=== PATIENT | female | born 1965 | race Two or more races ===

== ENCOUNTER 2016-10-22 18:55 | Emergency (ER) | payer MEDICAID ==
--- NOTE | 2016-10-22 19:05 | EDPHY ---
H & P HPI/ROS: HPI CHIEF COMPLAINT: Seizure from [facility] HISTORY OF PRESENT ILLNESS: This patient very pleasant 51-year-old female she lives at [facility] she has significant past medical history for epilepsy and at times is med noncompliant, anorexia, thyroid disease generalized weakness , she presents to the emergency room by EMS after she had a witnessed seizure generalized tonic-clonic. She does have a recent vagal nerve stimulator placed however it is not functioning yet. Upon arrival here in the emergency room she is still postictal. It is reported to me that she had possibly 15 minutes of seizure activity witnessed by [facility]. Here in the emergency room she is sitting here laughing and smiling. She is postictal. Patient is post be taking Depakote. Past Medical History: Epilepsy, medication noncompliant, thyroid disease, anorexia personality and behavior disorder, generalized muscle weakness Past Surgical History: recent vagal nerve stimulator Social History: Denies use of drugs alcohol tobacco products, lives [facility] Family History: Noncontributory ROS REVIEW OF SYSTEMS: A comprehensive 10 point review of systems is otherwise negative aside from elements mentioned in the history of present illness. Exam Constitutional smiling, laughing, postictal, confused triage nursing summary reviewed, vital signs reviewed, awake/alert. Eyes normal conjunctivae and sclera, EOMI, PERRLA. HENT normal inspection, atraumatic, moist mucus membranes, no epistaxis, neck supple/ no meningismus, no raccoon eyes. Respiratory clear to auscultation bilaterally, normal breath sounds, no respiratory distress, no wheezing. Cardiovascular rate normal, regular rhythm, no murmur, no edema, distal pulses normal. Gastrointestinal soft, non-tender, no rebound, no guarding, normal bowel sounds, no distension, no pulsatile mass. Genitourinary no CVA tenderness. Musculoskeletal no midline vertebral tenderness, full range of motion, no calf swelling, no tenderness of extremities, no meningismus, good pulses, neurovascularly intact. Skin pink, warm, & dry, no rash, skin atraumatic. Neurologic awake, alert and oriented x 1, AAOx1, moves all 4 extremities equally, motor intact, sensory intact, CN II-XII intact, normal cerebellar, normal vision, normal speech. Psychiatric normal mood/affect. Heme/Lymph/Immune no lymphadenopathy. Differential Diagnosis: Includes but is not limited to in a particular order, breakthrough seizure, epilepsy, medication noncompliance, electrolyte disturbance, dehydration Medical Decision Making: plan for this patient will place an IV check basic blood work including electrolytes, should be placed on full monitoring analyst will monitor closely for further seizure activity. Check Depakote level. Re-evaluation: 2038: Re-examination at this time: Patient is resting comfortably. She is at neurological baseline. Depakote level is low. Be given a 1000 mg extended release. She has not any further seizure activity here in emergency room she is monitored here for multiple hours. Vital signs are stable. Blood work reviewed shows no evidence of a low bicarb. Electrolytes are appropriate. Depakote level low. Patient is comfortable going home. It is noted that we did talk to Jessica Donald who tells me that they attempted to give her her Depakote dose this evening however she spit it out. Source: Patient - Medical/Surgical History Hx Asthma: No Hx Chronic Respiratory Disease: No Hx Diabetes: No Hx Cardiac Disease: No Hx Renal Disease: No Hx Cirrhosis: No Hx Alcoholism: No Hx HIV/AIDS: No Hx Splenectomy or Spleen Trauma: No Other PMH: SEIZURE, ANOREXIA, HYPOTHYROID, WEAKNESS - Social History Smoking Status: Former smoker Constitutional: Initial Vital Signs Temperature (C) 36.8 C 10/22/16 19:05 Heart Rate 77 10/22/16 19:05 Respiratory Rate 18 10/22/16 19:05 Blood Pressure 128/68 H 10/22/16 19:05 O2 Sat (%) 92 10/22/16 19:05 O2 Delivery Mode Room Air Allergies/Adverse Reactions: codeine [Codeine] Allergy (Intermediate, Verified 06/09/09 20:18) BREAK OUT LIKE A LOBSTER,RASH,PUFFY Home Medications: Medication Instructions Recorded ACETAZOLAMIDE 06/09/09 ALENDRONATE SODIUM 06/09/09 Levothyroxine 06/09/09 ZONISAMIDE 06/09/09 VIMPAT 05/30/10 Medical Decision Making - Data Points Laboratory Results: Laboratory Results 10/22/16 19:02 10/22/16 19:02 10/22/16 10/22/16 19:02 19:02 WBC 8.21 10^3/uL 10^3/uL (3.80-9.50) RBC 3.78 10^6/uL L 10^6/uL (4.18-5.33) Hgb 12.4 g/dL L g/dL (12.6-16.3) Hct 39.2 % % (38.0-47.0) MCV 103.7 fL H fL (81.5-99.8) MCH 32.8 pg pg (27.9-34.1) MCHC 31.6 g/dL L g/dL (32.4-36.7) RDW 15.8 % H % (11.5-15.2) Plt Count 240 10^3/uL 10^3/uL (150-400) MPV 9.8 fL fL (8.7-11.7) Neut % (Auto) 51.1 % % (39.3-74.2) Lymph % (Auto) 35.8 % % (15.0-45.0) Mobile % (Auto) 11.4 % % (4.5-13.0) Eos % (Auto) 1.1 % % (0.6-7.6) Baso % (Auto) 0.4 % % (0.3-1.7) Nucleat RBC Rel Count 0.0 % % (0.0-0.2) Absolute Neuts (auto) 4.19 10^3/uL 10^3/uL (1.70-6.50) Absolute Lymphs (auto) 2.94 10^3/uL 10^3/uL (1.00-3.00) Absolute Monos (auto) 0.94 10^3/uL H 10^3/uL (0.30-0.80) Absolute Eos (auto) 0.09 10^3/uL 10^3/uL (0.03-0.40) Absolute Basos (auto) 0.03 10^3/uL 10^3/uL (0.02-0.10) Absolute Nucleated RBC 0.00 10^3/uL 10^3/uL (0-0.01) Immature Gran % 0.2 % % (0.0-1.1) Immature Gran # 0.02 10^3/uL 10^3/uL (0.00-0.10) Sodium 140 mEq/L mEq/L (134-144) Potassium 4.0 mEq/L mEq/L (3.5-5.2) Chloride 107 mEq/L mEq/L (97-110) Carbon Dioxide 26 mEq/l mEq/l (22-31) Anion Gap 7 mEq/L L mEq/L (8-16) BUN 21 mg/dL mg/dL (7-23) Creatinine 0.5 mg/dL L mg/dL (0.6-1.0) Estimated GFR > 60 Glucose 83 mg/dL mg/dL (70-100) Calcium 9.8 mg/dL mg/dL (8.5-10.4) Valproic Acid 34.3 mcg/mL L mcg/mL (50.0-150.0) Medications Given: Discontinued Medications Sodium Chloride (Ns) 1,000 mls @ 0 mls/hr IV ONCE ONE PRN Reason: Wide Open Stop: 10/22/16 19:19 Last Admin: 10/22/16 19:34 Dose: 1,000 mls Departure - Departure Disposition: Home, Routine, Self-Care Clinical Impression: Seizure Condition: Good Instructions: Epilepsy (ED) Referrals: Patient,NotPresent [Unknown] - As per Instructions
[2016-10-22 19:08] VITALS: TEMP 98.2
[2016-10-22] MEDS ORDERED: NS 1,000 ML IV ONE (19:18)
[2016-10-22 19:24] LABS: % IMMATURE GRANULYOCYTES 0.2 % (0.0-1.1); ABSOLUTE IMMATURE GRANULOCYTES 0.02 10^3/uL (0.00-0.10); ADD DIFF? NO; ADD MORPH? NO; ADD SCAN? NO; ATYPICAL LYMPHOCYTE FLAG 10 (0-99); FRAGMENT RBC FLAG 0 (0-99); HEMATOCRIT 39.2 % (38.0-47.0); HEMOGLOBIN 12.4 g/dL (12.6-16.3); LEFT SHIFT FLG 0 (0-99); LIPEMIA HEMOLYSIS FLAG 80 (0-99); MEAN CELL HEMOGLOBIN 32.8 pg (27.9-34.1); MEAN CELL HEMOGLOBIN CONCENTR. 31.6 g/dL (32.4-36.7); MEAN CELL VOLUME 103.7 fL (81.5-99.8); MEAN PLATELET VOLUME 9.8 fL (8.7-11.7); PLATELET CLUMPS FLAG 0 (0-99); PLATELET COUNT 240 10^3/uL (150-400); RED BLOOD CELL COUNT 3.78 10^6/uL (4.18-5.33); RED CELL DISTRIBUTION WIDTH 15.8 % (11.5-15.2)
[2016-10-22 19:29] LABS: ANION GAP 7 mEq/L (8-16); CALCIUM 9.8 mg/dL (8.5-10.4); CARBON DIOXIDE 26 mEq/l (22-31); CHLORIDE 107 mEq/L (97-110); CREATININE 0.5 mg/dL (0.6-1.0); GLOMERULAR FILTRATION RATE > 60; GLUCOSE 83 mg/dL (70-100); SODIUM 140 mEq/L (134-144)
[2016-10-22] MEDS ORDERED: DIVALPROEX ER 500 MG TAB PO SCH (21:00)
[2016-10-22 21:19] VITALS: BP 121/75; PULSE 68; RESP 19; O2SAT 94
== END 2016-10-22 21:10 | disposition home or self-care (01) ==
LOC: EDUNIT#
DX: G40.909 Epilepsy, unspecified, not intractable, without status epilepticus (principal); Z87.891 Personal history of nicotine dependence

== ENCOUNTER 2016-10-27 18:19 | Emergency (ER) | payer MEDICAID ==
--- NOTE | 2016-10-27 18:19 | EDPHY ---
H & P Time Seen by Provider: 10/27/16 18:31 Constitutional: Initial Vital Signs Temperature (C) 36.6 C 10/27/16 18:24 Heart Rate 82 10/27/16 18:24 Respiratory Rate 16 10/27/16 18:24 Blood Pressure 126/113 H 10/27/16 18:24 O2 Sat (%) 95 10/27/16 18:24 O2 Delivery Mode Room Air Allergies/Adverse Reactions: codeine [Codeine] Allergy (Intermediate, Verified 06/09/09 20:18) BREAK OUT LIKE A LOBSTER,RASH,PUFFY Home Medications: Medication Instructions Recorded ACETAZOLAMIDE 06/09/09 ALENDRONATE SODIUM 06/09/09 Levothyroxine 06/09/09 ZONISAMIDE 06/09/09 VIMPAT 05/30/10 Medical Decision Making ED Course/Re-evaluation: CHIEF COMPLAINT: Head injury HISTORY OF PRESENT ILLNESS: This patient is a 51 year old female who presents to the Emergency Department by EMS from [facility] with a head injury obtained when she fell earlier this evening. She has a history of epilepsy and reports that she had a seizure causing her to fall, though this has not been confirmed. She reports headache secondary to the trauma. She denies sensation changes, vision changes, or other neurological deficits. No additional injuries. REVIEW OF SYSTEMS: A 10 point review of systems was performed and is negative with the exception of the elements mentioned in the history of present illness. PHYSICAL EXAM: HR 82, BP 126/113, O2 Sat 95%, RR 16. Temp noted General Appearance: Alert, well hydrated, appropriate, and non-toxic appearing. Head: Left parietal scalp hematoma with bleeding superficial abrasion. Eyes: Pupils equal, round, reactive to light and accommodation, EOMI, no trauma , no injection. Ears: Clear bilaterally, no perforation, normal landmarks Nose: Atraumatic, no rhinorrhea, clear. Throat: There is no erythema or exudates, no lesions, normal tonsils, mucus membranes moist. Neck: Supple, 2+ carotid upstroke, nontender, no lymphadenopathy. Respiratory: No retractions, no distress, no wheezes, and no accessory muscle use. Lungs are clear to auscultation bilaterally. Cardiovascular: Regular rate and rhythm, no murmurs, rubs, or gallops. Bilateral carotid, radial, dorsalis pedis, and posterior tibial pulses intact. Good capillary refill all extremities. Gastrointestinal: Abdomen is soft, nontender, non-distended, no masses, no rebound, no guarding, no peritoneal signs. Musculoskeletal: Normal active ROM of all extremities, atraumatic. Neurological: Alert, appropriate, and interactive. The patient has normal DTRs and non-focal cranial nerves, motor, sensory, and cerebellar exam. Skin: No rashes, good turgor, no nodules on palpation. Past medical history: Epilepsy, anorexia, thyroid disease. Past surgical history: Recent vagal nerve stimulator. Family history: Non-contributory. Social history: Lives at [facility]. DIAGNOSTICS/PROCEDURES/CRITICAL CARE TIME: Study: CTA of the head Indication: Fall, trauma Results: CT angiogram of the head was obtained. The results of the study are: 1. Old posttraumatic/postsurgical change to the posterior superior left frontal and superior left parietal regions with some associated dystrophic calcifications above the left lateral ventricle. There is some localized mild increased attenuation in this area which may be related to some calcification, although it would be difficult to entirely exclude some petechial hemorrhage (especially given an acute left posterior parietal scalp hematoma); if there are no prior studies currently available, short-term follow- up is suggested. 2. Mild cerebral and cerebellar cortical atrophy. 3. Old posttraumatic change to the nose. The study was read by the radiologist, Dr. Ramakrishna Rowan. I viewed the images myself on the PACS system. DIFFERENTIAL DIAGNOSIS: The differential diagnosis for the patient's head injury included but was not limited to concussion, skull fracture, intra- parenchymal contusion, subarachnoid, subdural and epidural hematoma. MEDICAL DECISION MAKING: This patient is a 51 year old female with extensive neurological history and history of intractable seizures living at [facility] who presents today with a bleeding hematoma to his left parietal scalp. She reports that she had a seizure, but given her mentation status, it is unclear if this is the case and has not been confirmed. She complains of head pain. Her exam is benign apart from the bleeding hematoma to her parietal scalp. Will proceed with treatment of pain, wound care, and CT of the head. Prior medical records reviewed by myself, including recent visit to the ED on 10/22/2016. 2 tab Percocet administered for pain. Imaging results reported to me by Dr. Rowan, radiology. Plan for consultation with neurosurgery. 1912: Consultation with Dr. Dwight Hogan who reviewed the images and suggests no evidence of acute trauma. Patient will be discharged back to [facility] in good condition with return precautions. - Data Points Medications Given: Discontinued Medications Oxycodone/Acetaminophen (Percocet 5/325) 2 tab PO EDNOW ONE Stop: 10/27/16 18:39 Last Admin: 10/27/16 19:17 Dose: 2 tab Departure - Departure Disposition: Home, Routine, Self-Care Clinical Impression: Left parietal scalp hematoma Qualifiers: Encounter type: initial encounter Qualified Code(s): S00.03XA - Contusion of scalp, initial encounter Condition: Good Instructions: Head Injury (ED) Additional Instructions: 1. Take Tylenol every 6 hours as needed for pain. 2. Keep your wound clean and dry. 3. Return to the Emergency Department if you experience severe headache, confusion, slurred speech, difficulty walking, or other serious concerns. Referrals: MERVAT PRIETO [Primary Care Provider] - As per Instructions Report Scribed for: Atul Molina Report Scribed by: Rama Schneider Date of Report: 10/27/16 Time of Report: 18:30
[2016-10-27 18:30] VITALS: RESP 16
[2016-10-27] MEDS ORDERED: OXYCODONE/APAP 5/325 TAB PO ONE (18:38)
[2016-10-27 20:11] VITALS: BP 110/71; PULSE 72; TEMP 97.9; O2SAT 95
== END 2016-10-27 20:11 | disposition home or self-care (01) ==
LOC: EDUNIT#
DX: S00.03XA Contusion of scalp, initial encounter (principal); W18.39XA Other fall on same level, initial encounter

== ENCOUNTER 2016-12-03 09:22 | Emergency (ER) | payer MEDICAID ==
--- NOTE | 2016-12-03 09:35 | EDPHY ---
H & P Stated Complaint: Fall Time Seen by Provider: 12/03/16 09:48 HPI/ROS: CHIEF COMPLAINT: Head injury HISTORY OF PRESENT ILLNESS: This is a 51-year-old female brought in by EMS from [facility]. EMS reports patient had a mechanical fall witnessed by [facility] staff. Patient has a history of a falls, history of epilepsy muscle weakness anorexia. When patient fell she tried to catch herself with her left arm hitting left side of head on tile floor. EMS reports [facility] states this is her baseline mentation. Patient complaining of left-sided headache. REVIEW OF SYSTEMS: Constitutional: No fever no chills Eyes: No vision changes ENT: No sore throat, bump on left side of head with laceration Respiratory: No shortness of breath Cardiac: No chest pain Gastrointestinal: No no abdominal pain Musculoskeletal: No back pain Skin: No rash Neurological: Complain of headache Source: Patient, Family, EMS, group home records Exam Limitations: Clinical condition (Baseline altered mental status), Physical impairment (Left lower extremity brace) - Medical/Surgical History Hx Asthma: No Hx Chronic Respiratory Disease: No Hx Diabetes: No Hx Cardiac Disease: No Hx Renal Disease: No Hx Cirrhosis: No Hx Alcoholism: No Hx HIV/AIDS: No Hx Splenectomy or Spleen Trauma: No Other PMH: SEIZURE, ANOREXIA, HYPOTHYROID, WEAKNESS - Social History Smoking Status: Former smoker - Physical Exam Exam: General Appearance: Awake, slow to answer questions no distress. Altered mentation baseline per nursing facility and family Eyes: Pupils equal and round no pallor or injection. ENT, Mouth: Mucous membranes moist. Contusion with 1.5 cm scalp laceration left parietal bleeding controlled Respiratory: There are no retractions, lungs are clear to auscultation. Cardiovascular: Regular rate and rhythm. Gastrointestinal: Abdomen is soft and nontender, no masses, bowel sounds normal. Skin: Warm and dry, no rashes. Musculoskeletal: Cervical vertebral spine tenderness on palpation. Neck is supple Extremities no lacerations or ecchymosis noted. Positive CMS intact. Brace noted to left lower extremity Psychiatric: Patient is oriented X 2, there is no agitation. Constitutional: Initial Vital Signs Temperature (C) 36.7 C 12/03/16 09:40 Heart Rate 68 12/03/16 09:40 Respiratory Rate 18 12/03/16 09:40 Blood Pressure 107/76 12/03/16 09:40 O2 Sat (%) 96 12/03/16 09:40 O2 Delivery Mode Room Air Allergies/Adverse Reactions: codeine [Codeine] Allergy (Intermediate, Verified 06/09/09 20:18) BREAK OUT LIKE A LOBSTER,RASH,PUFFY Home Medications: Medication Instructions Recorded ACETAZOLAMIDE 06/09/09 ALENDRONATE SODIUM 06/09/09 Levothyroxine 06/09/09 ZONISAMIDE 06/09/09 VIMPAT 05/30/10 Medical Decision Making - Diagnostics Imaging: Imaging Impressions Cervical Spine CT 12/03/16 09:35 Impression: Negative for acute post traumatic sequela. Postoperative changes as detailed above are stable. CT Cervical Spine Without Contrast History: Neck pain following trauma. Technique: Multislice helical CT through the cervical spine without contrast from the skull base to T1. Soft tissue and bone evaluation is performed. Sagittal and coronal reconstructions are obtained and reviewed. Dose reduction techniques were utilized. Findings: Cervical alignment is anatomic. No acute fracture or dislocation is identified. There is minimal anterior wedging of the C5 vertebral body and there are associated bony hypertrophic changes suggesting chronicity possibly related to remote trauma. The relationship between skull base and C1 is normal. The C1-C2 articulation is normal. The odontoid process is normal. The cervical thoracic junction is normal. Soft tissue window evaluation does not show evidence of epidural or prevertebral hematoma. Mild multilevel spondylosis is noted. Surgical changes are noted in the soft tissues of the left neck. Impression: 1. Negative for fracture. 2. See above report for additional findings. Results called and discussed with Rosie Simon NP on 12/03/2016 at 10:20hours. Head CT 12/03/16 09:35 Impression: Negative for acute post traumatic sequela. Postoperative changes as detailed above are stable. CT Cervical Spine Without Contrast History: Neck pain following trauma. Technique: Multislice helical CT through the cervical spine without contrast from the skull base to T1. Soft tissue and bone evaluation is performed. Sagittal and coronal reconstructions are obtained and reviewed. Dose reduction techniques were utilized. Findings: Cervical alignment is anatomic. No acute fracture or dislocation is identified. There is minimal anterior wedging of the C5 vertebral body and there are associated bony hypertrophic changes suggesting chronicity possibly related to remote trauma. The relationship between skull base and C1 is normal. The C1-C2 articulation is normal. The odontoid process is normal. The cervical thoracic junction is normal. Soft tissue window evaluation does not show evidence of epidural or prevertebral hematoma. Mild multilevel spondylosis is noted. Surgical changes are noted in the soft tissues of the left neck. Impression: 1. Negative for fracture. 2. See above report for additional findings. Results called and discussed with Rosie Simon NP on 12/03/2016 at 10:20hours. Procedures: Procedure: Laceration repair. Verbal consent was obtained from the patient and family. 1.5cm laceration on the left parietal. The wound was irrigated. There were no deep structures involved. The wound was repaired 3 lisbet. The procedure was performed by myself. A dressing was applied by our EMT. Patient tolerated procedure ED Course/Re-evaluation: Discussed plan of care with family: CT head and cervical spine negative for any acute findings 11:00: Wound irrigated, 3 lisbet placed 11:10: discharge back to nursing facility---> stable, discussed discharge instructions with family Differential Diagnosis: Differential diagnosis considered but not limited to SAH, no skull fracture and cervical fracture Departure - Departure Disposition: Home, Routine, Self-Care Clinical Impression: Scalp laceration Qualifiers: Encounter type: initial encounter Qualified Code(s): S01.01XA - Laceration without foreign body of scalp, initial encounter Condition: Good Instructions: Laceration (ED) Additional Instructions: 1. Ice pack 15 minutes to contusion every hour for the next 6-12 hours 2. #3 lisbet were placed to laceration, monitor for any signs of infection 3. CT of head and neck were negative for any acute findings 4. Patient should be using walker to assist considered she is high fall risk Referrals: Patient,NotPresent [Unknown] - As per Instructions [facility],. [Clinic] - As per Instructions
[2016-12-03 09:43] VITALS: RESP 18
[2016-12-03 11:18] VITALS: BP 110/74; PULSE 74; TEMP 98.6; O2SAT 100
== END 2016-12-03 11:43 | disposition home or self-care (01) ==
LOC: EDUNIT#
PROC: 0HQ0XZZ Repair Scalp Skin, External Approach (ICD-10-PCS; principal; 2016-12-03)
DX: S01.01XA Laceration without foreign body of scalp, initial encounter (principal); Z87.891 Personal history of nicotine dependence; W18.09XA Striking against other object with subsequent fall, initial encounter

== ENCOUNTER 2016-12-08 08:49 | Emergency (ER) | payer MEDICAID ==
[2016-12-08 09:01] VITALS: RESP 16
--- NOTE | 2016-12-08 09:01 | EDPHY ---
H & P Time Seen by Provider: 12/08/16 08:57 HPI/ROS: CHIEF COMPLAINT: Fall HISTORY OF PRESENT ILLNESS: Patient is a 51-year-old female who is in a [facility] for history of severe epilepsy. She fell out of her chair this morning at breakfast. We are unsure as to whether not she had a seizure. group home staff felt that she was less alert than at baseline. She was seen here last week after similar incident and they had negative head CT. She did have a laceration to the left parieto-occipital region repaired with lisbet. She has an old nasal bone fracture as well. EMS brought her in as a limited trauma. The patient does answer basic questions she does complain of mild neck pain. We are not sure she hit her head today. REVIEW OF SYSTEMS: Unable to obtain secondary to condition EXAM: GENERAL: Thin, responsive HEAD: Atraumatic, normocephalic. EYES: Pupils equal round and reactive to light, extraocular movements intact, sclera anicteric, conjunctiva are normal. ENT: Deformity and bruising to the nasal bridge and near eyes, appears to be old. Deformed nose. TMs normal, nares patent, oropharynx clear without exudates. Moist mucous membranes. NECK: Cervical collar in place, mild tenderness to palpation midline. LUNGS: Breath sounds clear to auscultation bilaterally and equal. No wheezes rales or rhonchi. HEART: Regular rate and rhythm without murmurs, rubs or gallops. ABDOMEN: Soft, nontender, normoactive bowel sounds. No guarding, no rebound. No masses appreciated. BACK: No CVA tenderness, no spinal tenderness, step-offs or deformities EXTREMITIES: Normal range of motion, no pitting or edema. No clubbing or cyanosis. NEUROLOGICAL: Cranial nerves II through XII grossly intact. Normal speech, normal gait. 5/5 strength, normal movement in all extremities, normal sensation PSYCH: Unable to assess SKIN: Warm, dry, normal turgor, no visible rashes or lesions. Source: Patient, EMS Exam Limitations: No limitations - Medical/Surgical History Hx Asthma: No Hx Chronic Respiratory Disease: No Hx Diabetes: No Hx Cardiac Disease: No Hx Renal Disease: No Hx Cirrhosis: No Hx Alcoholism: No Hx HIV/AIDS: No Hx Splenectomy or Spleen Trauma: No Other PMH: SEIZURE, ANOREXIA, HYPOTHYROID, WEAKNESS - Family History Significant Family History: No pertinent family hx - Social History Smoking Status: Former smoker Alcohol Use: Sober Drug Use: None Constitutional: Initial Vital Signs Temperature (C) 36.5 C 12/08/16 08:49 Heart Rate 95 12/08/16 08:49 Respiratory Rate 16 12/08/16 08:49 Blood Pressure 103/73 12/08/16 08:49 O2 Sat (%) 96 12/08/16 08:49 O2 Delivery Mode Room Air Allergies/Adverse Reactions: codeine [Codeine] Allergy (Intermediate, Verified 06/09/09 20:18) BREAK OUT LIKE A LOBSTER,RASH,PUFFY Home Medications: Medication Instructions Recorded ACETAZOLAMIDE 06/09/09 ALENDRONATE SODIUM 06/09/09 Levothyroxine 06/09/09 ZONISAMIDE 06/09/09 VIMPAT 05/30/10 Medical Decision Making - Diagnostics Imaging: Discussed imaging studies w/ medical bill processor Radiologist ED Course/Re-evaluation: 10:00 a.m. the patient is feeling much better. She is at her baseline mental status. She is answering questions appropriately. I cleared her cervical collar. She denies having any pain but states that her throat is very dry. We will have her attempt to drink. She states that she thinks she had a seizure today and that is why she fell. She states this happens every day. She is able to tolerate p.o. fluids. Differential Diagnosis: Partial list of the Differential diagnosis considered include but were not limited to; seizure, mechanical fall, traumatic head injury, neck injury, electrolyte abnormality, dehydration, and although unlikely based on the history and physical exam, I also considered substance abuse, fracture, intracranial hemorrhage. I discussed these differential diagnoses and the plan with the patient as well as the usual and expected course. The patient understands that the diagnosis is provisional and that in medicine we are not always correct and that further workup is often warranted. Usual and customary warnings were given. All of the patient's questions were answered. The patient was instructed to return to the emergency department should the symptoms at all worsen or return, otherwise to followup with the physician as we discussed. - Data Points Laboratory Results: Laboratory Results 12/08/16 09:40 12/08/16 09:40 Departure - Departure Disposition: Home, Routine, Self-Care Clinical Impression: Seizure Epilepsy Qualifiers: Epilepsy type: other Intractability: not intractable Status epilepticus: without status epilepticus Qualified Code(s): G40.802 - Other epilepsy, not intractable, without status epilepticus Condition: Fair Instructions: Recurrent Seizures in Adults (ED) Referrals: Patient,NotPresent [Unknown] - As per Instructions Lupe Chavira MD [[facility] [place] Primary Care Provider] - As per Instructions Ochoa Morales MD [Medical Doctor] - As per Instructions
[2016-12-08 09:50] LABS: % IMMATURE GRANULYOCYTES 0.3 % (0.0-1.1); ABSOLUTE IMMATURE GRANULOCYTES 0.04 10^3/uL (0.00-0.10); ADD DIFF? NO; ADD MORPH? NO; ADD SCAN? NO; ATYPICAL LYMPHOCYTE FLAG 10 (0-99); FRAGMENT RBC FLAG 0 (0-99); HEMATOCRIT 39.7 % (38.0-47.0); HEMOGLOBIN 12.8 g/dL (12.6-16.3); LEFT SHIFT FLG 0 (0-99); LIPEMIA HEMOLYSIS FLAG 80 (0-99); MEAN CELL HEMOGLOBIN 31.5 pg (27.9-34.1); MEAN CELL HEMOGLOBIN CONCENTR. 32.2 g/dL (32.4-36.7); MEAN CELL VOLUME 97.8 fL (81.5-99.8); MEAN PLATELET VOLUME 10.7 fL (8.7-11.7); PLATELET CLUMPS FLAG 20 (0-99); PLATELET COUNT 172 10^3/uL (150-400); RED BLOOD CELL COUNT 4.06 10^6/uL (4.18-5.33); RED CELL DISTRIBUTION WIDTH 13.8 % (11.5-15.2)
[2016-12-08 10:35] LABS: ANION GAP 14 mEq/L (8-16); CALCIUM 9.4 mg/dL (8.5-10.4); CARBON DIOXIDE 21 mEq/l (22-31); CHLORIDE 112 mEq/L (97-110); CREATININE 0.5 mg/dL (0.6-1.0); GLOMERULAR FILTRATION RATE > 60; GLUCOSE 83 mg/dL (70-100); POTASSIUM 3.9 mEq/L (3.5-5.2); SODIUM 147 mEq/L (134-144)
[2016-12-08 11:35] VITALS: BP 95/70; PULSE 86; TEMP 98.2; O2SAT 95
== END 2016-12-08 11:30 | disposition home or self-care (01) ==
LOC: EDUNIT#
DX: G40.802 Other epilepsy, not intractable, without status epilepticus (principal); Z87.891 Personal history of nicotine dependence; W07.XXXA Fall from chair, initial encounter; Y92.129 Unspecified place in nursing home as the place of occurrence of the external cause
CPT/HCPCS: L0120

== ENCOUNTER 2017-03-25 21:19 | Emergency (ER) | payer MEDICAID ==
--- NOTE | 2017-03-25 21:35 | EDPHY ---
H & P Time Seen by Provider: 03/25/17 21:33 HPI/ROS: CHIEF COMPLAINT: Fall HISTORY OF PRESENT ILLNESS: The patient is a 51-year-old female with a history of epilepsy and cognitive disorder who was at the [facility] this evening when she had a mechanical fall. She fell into a dresser and then onto the ground hitting the back of her head on the ground. She is complaining of pain in her head and neck. She is not on any blood thinners. She did not have a seizure. Staff at the [facility] stated that she seemed slightly more confused than usual. She has not had any recent illness. No nausea vomiting. I saw her in November for the same complaint. REVIEW OF SYSTEMS: Constitutional: denies: chills, fever, recent illness, recent injury EENTM: denies: blurred vision, double vision, nose congestion Respiratory: denies: cough, shortness of breath Cardiac: denies: chest pain, irregular heart rate, lightheadedness, palpitations Gastrointestinal/Abdominal: denies: abdominal pain, diarrhea, nausea, vomiting, blood streaked stools Genitourinary: denies: dysuria, frequency, hematuria, pain Musculoskeletal: denies: joint pain, muscle pain Skin: denies: lesions, rash, jaundice, bruising Neurological: See HPI Hematologic/Lymphatic: denies: blood clots, easy bleeding, easy bruising Immunologic/allergic: denies: HIV/AIDS, transplant EXAM: GENERAL: Well-appearing, well-nourished and in no acute distress. HEAD: Atraumatic, normocephalic. EYES: Pupils equal round and reactive to light, extraocular movements intact, sclera anicteric, conjunctiva are normal. ENT: TMs normal, old nasal bone fracture significant deformity, oropharynx clear without exudates. Moist mucous membranes. NECK: Cervical collar in place, nontender LUNGS: Breath sounds clear to auscultation bilaterally and equal. No wheezes rales or rhonchi. HEART: Regular rate and rhythm without murmurs, rubs or gallops. ABDOMEN: Soft, nontender, normoactive bowel sounds. No guarding, no rebound. No masses appreciated. BACK: No CVA tenderness, no spinal tenderness, step-offs or deformities EXTREMITIES: Normal range of motion, no pitting or edema. No clubbing or cyanosis. NEUROLOGICAL: Cranial nerves II through XII grossly intact. Normal speech, normal gait. 5/5 strength, normal movement in all extremities, normal sensation PSYCH: Normal mood, normal affect. SKIN: Warm, dry, normal turgor, no visible rashes or lesions. Source: Patient, EMS, Old records Exam Limitations: Clinical condition - Medical/Surgical History Hx Asthma: No Hx Chronic Respiratory Disease: No Hx Diabetes: No Hx Cardiac Disease: No Hx Renal Disease: No Hx Cirrhosis: No Hx Alcoholism: No Hx HIV/AIDS: No Hx Splenectomy or Spleen Trauma: No Other PMH: SEIZURE, ANOREXIA, HYPOTHYROID, WEAKNESS, muscle atrophy - Family History Significant Family History: No pertinent family hx - Social History Smoking Status: Former smoker Alcohol Use: Sober Drug Use: None Constitutional: Initial Vital Signs Temperature (C) 36.5 C 03/25/17 21:20 Heart Rate 74 03/25/17 21:20 Respiratory Rate 16 03/25/17 21:20 Blood Pressure 137/72 H 03/25/17 21:20 O2 Sat (%) 93 03/25/17 21:20 O2 Delivery Mode Room Air Allergies/Adverse Reactions: codeine [Codeine] Allergy (Intermediate, Verified 03/26/17 00:53) BREAK OUT LIKE A LOBSTER,RASH,PUFFY Home Medications: Medication Instructions Recorded ACETAZOLAMIDE 06/09/09 ALENDRONATE SODIUM 06/09/09 Levothyroxine 06/09/09 ZONISAMIDE 06/09/09 VIMPAT 05/30/10 Medical Decision Making - Diagnostics Imaging: Discussed imaging studies w/ information systems security officer Radiologist ED Course/Re-evaluation: The patient has a nondisplaced fracture of the body of C4 that transverses the left vertebral foramen. She remains in a collar. I will consult Neurosurgery likely admit to Trauma. She continues to deny any other pain or acute injuries. 10:30 p.m. Discussed the case with Dr. Olvera from Neurosurgery. He does not recommend CT angiogram unless the patient has stroke-like symptoms. He does suggest MRI in the morning and she may be cleared from her cervical collar at that time if it is negative. I spoke with the patient who states that she feels normal. She does have mild neck pain. She is moving all extremities without difficulty. She denies thoracic or abdominal pain. Have paged trauma service to admit. 10:45 p.m. I discussed the case with Dr. West from General surgery. He suggests the patient be admitted to the Neurosurgery service since this is an isolated neck injury. 11:10 p.m. I discussed the case with Dr. Olvera from Neurosurgery. He states that if this is a isolated injury the patient does not need to be admitted. She can be discharged in a Arthur J collar and follow up in the clinic next week for flexion-extension imaging. Differential Diagnosis: Partial list of the Differential diagnosis considered include but were not limited to; cervical spine injury, head injury, intoxication and although unlikely based on the history and physical exam, I also considered electrolyte abnormality, thoracic injury, extremity injury. Departure - Departure Disposition: [facility] Inpatient Acute Clinical Impression: Cervical spine fracture Qualifiers: Encounter type: initial encounter Cervical vertebra fracture level: C4 Fracture type: open Fracture morphology: other fracture Fracture alignment: nondisplaced Qualified Code(s): S12.391B - Other nondisplaced fracture of fourth cervical vertebra, initial encounter for open fracture Condition: Fair Instructions: Cervical Fracture (ED), Arthur J Collar (ED) Additional Instructions: You have a nondisplaced fracture of C4. Keep the collar in place until you follow up with Neurosurgery next week. Referrals: Red Olvera MD [Medical Doctor] - 2-3 days without fail
[2017-03-26 00:21] VITALS: BP 100/68; PULSE 72; RESP 18; O2SAT 96
[2017-03-26 00:53] VITALS: TEMP 97.7
== END 2017-03-26 00:05 | disposition home or self-care (01) ==
DX: S12.391A Other nondisplaced fracture of fourth cervical vertebra, initial encounter for closed fracture (principal); Z87.891 Personal history of nicotine dependence; W18.00XA Striking against unspecified object with subsequent fall, initial encounter; Y92.129 Unspecified place in nursing home as the place of occurrence of the external cause

== ENCOUNTER 2017-05-07 18:17 | Emergency (ER) | payer MEDICAID ==
--- NOTE | 2017-05-07 18:24 | EDPHY ---
H & P Time Seen by Provider: 05/07/17 18:21 HPI/ROS: CHIEF COMPLAINT: Head injury HISTORY OF PRESENT ILLNESS: 51-year-old female no anticoagulant use, history of anorexia, chronic nasal deformity, frequent falls, lives at [facility], arrives by ambulance, not a trauma activation after she sustained a mechanical fall hitting the temporal occipital region of her head with brief loss of consciousness. Occurred shortly prior to arrival. No headache. No nausea or vomiting. No seizure-like activity. No incontinence. No amnesia. No alcohol or drug use. REVIEW OF SYSTEMS: A ten point review of systems was performed and is negative with the exception of the items mentioned in the HPI PAST MEDICAL/SURGICAL HISTORY: Chronic nasal deformity. Anorexia. Frequent falls. SOCIAL HISTORY: denies alcohol use at time of incident. Lives at [facility]. PHYSICAL EXAM 1) GENERAL: Well-developed, well-nourished, alert and oriented. Appears to be in no acute distress. Answering questions appropriately. 2) HEAD: Normocephalic, right temporal occipital hematoma 3) HEENT: Pupils equal, round, reactive to light bilaterally. Negative Horners. Nasopharynx, oropharynx, clear. Nasal deformity noted No septal hematoma. No rhinorrhea. No oral trauma. Ears bilaterally with normal tympanic membranes. No hemotympanum. No fluid or blood in the external auditory canal. No raccoon eyes. No Granados sign. Teeth are normally aligned with no gross malocclusion, TMJ bilaterally nontender, facial bones nontender including the zygomatic arch, maxilla mandible. 4) NECK: No cervical collar is on. Posterior cervical spine is nontender, no stepoff, no effusion. Full range of motion which does not elicit any midline cervical spine pain, no posterior midline tenderness, no step-off. 5) LUNGS: Clear to auscultation bilaterally, no wheezes, no rhonchi, no retractions. No obvious signs of trauma. No chest wall pain. No flaring, no grunting. Moving symmetrically. No crepitus. 6) HEART: Regular rate and rhythm, 7) ABDOMEN: No guarding, no rebound, no focal tenderness, no peritoneal signs, no signs of trauma, no ecchymosis 8) MUSCULOSKELETAL: Moving all extremities, no focal areas of tenderness, no obvious trauma. 9) BACK: No midline vertebral tenderness, no fluctuance, no step-off, no obvious trauma, no visual or palpable abnormality. 10) SKIN: [ No laceration. No abrasion DIFFERENTIAL DIAGNOSIS: Not necessarily in any particular order, my differential diagnosis includes, but is not limited to, concussion, skull fracture, intraparenchymal contusion, subarachnoid, subdural and epidural hematoma. The patient understands that this diagnosis is provisional and can never be 100% accurate. - Medical/Surgical History Hx Asthma: No Hx Chronic Respiratory Disease: No Hx Diabetes: No Hx Cardiac Disease: No Hx Renal Disease: No Hx Cirrhosis: No Hx Alcoholism: No Hx HIV/AIDS: No Hx Splenectomy or Spleen Trauma: No Other PMH: SEIZURE, ANOREXIA, HYPOTHYROID, WEAKNESS, muscle atrophy - Social History Smoking Status: Former smoker Constitutional: Initial Vital Signs Temperature (C) 36.7 C 05/07/17 18:26 Heart Rate 79 05/07/17 18:26 Respiratory Rate 18 05/07/17 18:26 Blood Pressure 134/93 H 05/07/17 18:26 O2 Sat (%) 95 05/07/17 18:26 O2 Delivery Mode Room Air Allergies/Adverse Reactions: codeine [Codeine] Allergy (Intermediate, Verified 05/07/17 18:22) BREAK OUT LIKE A LOBSTER,RASH,PUFFY Home Medications: Medication Instructions Recorded ALENDRONATE SODIUM 06/09/09 Levothyroxine 06/09/09 ZONISAMIDE 06/09/09 Divalproex Sodium 05/07/17 Lacosamide 05/07/17 Ondansetron 05/07/17 Medical Decision Making ED Course/Re-evaluation: 6:[address] ordered in this patient for trauma for the following indication: loss of consciousness and visible head trauma. 6:46 p.m.: CT imaging of the head negative per Radiology interpretation. Patient was re-evaluated at this time she remains answering questions appropriately. Plan will be discharge back to [facility]. Departure - Departure Disposition: Home, Routine, Self-Care Clinical Impression: Head injury due to trauma Qualifiers: Encounter type: initial encounter Qualified Code(s): S09.90XA - Unspecified injury of head, initial encounter Condition: Good Instructions: Head Injury (ED) Additional Instructions: ALTHOUGH THERE IS NO EVIDENCE OF SERIOUS HEAD INJURY AT THIS TIME, DELAYED SIGNS CAN APPEAR 24 TO 48 HOURS AFTER INJURY. WE RECOMMEND THAT YOU DESIGNATE A FRIEND OR FAMILY MEMBER TO OBSERVE YOU OVER THE NEXT FEW DAYS TO ENSURE THAT YOUR CONDITION IS PROGRESSING NORMALLY. PLEASE RETURN TO THE EMERGENCY DEPARTMENT (ED) IMMEDIATELY IF YOU HAVE INCREASED HEADACHE, PERSISTENT HEADACHE , VOMITING, WEAKNESS, CONFUSION OR VISUAL PROBLEMS. WE RECOMMEND THAT YOU DO NOT RESUME CONTACT SPORTS OR ACTIVITIES THAT TAKE COORDINATION OR BALANCE SUCH SKIING OR RIDING A BICYCLE UNTIL CLEARED TO DO SO BY YOUR DOCTOR OR BY A NEUROLOGIST. Referrals: Follow-up, with the [facility] provider tomorrow [Other] - As per Instructions
[2017-05-07 18:28] VITALS: TEMP 98.1
[2017-05-07 20:53] VITALS: BP 115/91; PULSE 88; RESP 16; O2SAT 91
== END 2017-05-07 21:01 | disposition home or self-care (01) ==
DX: S09.90XA Unspecified injury of head, initial encounter (principal); Z87.891 Personal history of nicotine dependence; W01.198A Fall on same level from slipping, tripping and stumbling with subsequent striking against other object, initial encounter

== ENCOUNTER 2017-06-29 16:07 | Emergency (ER) | payer MEDICAID ==
--- NOTE | 2017-06-29 16:27 | CPEKG ---
Heart Rate: 74 RR Interval: 811 P-R Interval: 156 QRSD Interval: 88 QT Interval: 392 QTC Interval: 435 P [place]: 66 QRS [place]ston: 71 T Wave Sandston: 49 EKG Severity - NORMAL ECG - EKG Impression: SINUS RHYTHM Electronically Signed By: Nelly Botello 30-Jun-2017 00:02:46
[2017-06-29 16:44] LABS: % IMMATURE GRANULYOCYTES 0.3 % (0.0-1.1); ABSOLUTE IMMATURE GRANULOCYTES 0.03 10^3/uL (0.00-0.10); ADD DIFF? NO; ADD MORPH? NO; ADD SCAN? NO; ATYPICAL LYMPHOCYTE FLAG 0 (0-99); FRAGMENT RBC FLAG 0 (0-99); HEMATOCRIT 38.1 % (38.0-47.0); HEMOGLOBIN 12.7 g/dL (12.6-16.3); LEFT SHIFT FLG 0 (0-99); LIPEMIA HEMOLYSIS FLAG 80 (0-99); MEAN CELL HEMOGLOBIN 32.4 pg (27.9-34.1); MEAN CELL HEMOGLOBIN CONCENTR. 33.3 g/dL (32.4-36.7); MEAN CELL VOLUME 97.2 fL (81.5-99.8); MEAN PLATELET VOLUME 9.3 fL (8.7-11.7); PLATELET CLUMPS FLAG 10 (0-99); PLATELET COUNT 288 10^3/uL (150-400); RED BLOOD CELL COUNT 3.92 10^6/uL (4.18-5.33); RED CELL DISTRIBUTION WIDTH 13.8 % (11.5-15.2)
[2017-06-29 17:04] LABS: ANION GAP 9 mEq/L (8-16); CALCIUM 9.9 mg/dL (8.5-10.4); CARBON DIOXIDE 29 mEq/l (22-31); CHLORIDE 102 mEq/L (97-110); CREATININE 0.6 mg/dL (0.6-1.0); GLOMERULAR FILTRATION RATE > 60; GLUCOSE 92 mg/dL (70-100); POTASSIUM 3.9 mEq/L (3.5-5.2); SODIUM 140 mEq/L (134-144)
[2017-06-29 17:07] VITALS: RESP 18
[2017-06-29 17:13] LABS: TROPONIN I < 0.012 ng/mL (0.000-0.034)
--- NOTE | 2017-06-29 18:01 | EDPHY ---
H & P Stated Complaint: CHIN LAC/FALL HPI/ROS: Chief complaint: Fall with facial injury History isn't illness: This is a 52-year-old female who presents to the emergency department with EMS after sustaining a fall at her assisted living home injuring her face. According to EMS the staff did not witness this fall. Patient does have a history of gait disturbances and falls. Apparently she believes she tripped and fell, striking her face. She sustained a laceration to the chin. Patient has a difficult time remembering the entire event. She complains of discomfort to the chin but no other complaints at this time. Review of systems: A 10 point review of systems was obtained and other than described above was negative - Personal History LMP (Females 10-55): Unknown Current Tetanus Diphtheria and Acellular Pertussis (TDAP): Unsure - Medical/Surgical History Hx Asthma: No Hx Chronic Respiratory Disease: No Hx Diabetes: No Hx Cardiac Disease: No Hx Renal Disease: No Hx Cirrhosis: No Hx Alcoholism: No Hx HIV/AIDS: No Hx Splenectomy or Spleen Trauma: No Other PMH: SEIZURE, ANOREXIA, HYPOTHYROID, WEAKNESS, muscle atrophy - Social History Smoking Status: Former smoker - Physical Exam Exam: General Appearance: Alert, nontoxic Eyes: PERRLA ENT: No evidence of dental trauma. She appears to have a normal bite. Teeth appear stable without bleeding around gumline. Respiratory: Lungs clear to auscultation bilaterally Cardiac: Regular rate and rhythm. Gastrointestinal: Soft, nondistended, nontender Neurological: Alert. Cranial nerves 2-12 grossly intact. Strength and sensation intact and symmetrical. Skin: 1 cm laceration to the chin Musculoskeletal: Face is nontender to palpation. She is opening closing her mouth without difficulty and biting on a tongue depressor bilaterally without discomfort. The head is nontender without crepitus or bony deformity. The spine is nontender without crepitus or bony deformity. Chest wall intact palpation without crepitus or subcutaneous air. Patient moving all extremities well. Constitutional: Initial Vital Signs Temperature (C) 36.9 C 06/29/17 16:20 Heart Rate 84 06/29/17 16:20 Respiratory Rate 18 06/29/17 16:20 Blood Pressure 104/84 H 06/29/17 16:20 O2 Sat (%) 97 06/29/17 16:20 O2 Delivery Mode Room Air Allergies/Adverse Reactions: codeine [Codeine] Allergy (Intermediate, Verified 05/07/17 18:22) BREAK OUT LIKE A LOBSTER,RASH,PUFFY Home Medications: Medication Instructions Recorded ALENDRONATE SODIUM 06/09/09 Levothyroxine 06/09/09 ZONISAMIDE 06/09/09 Divalproex Sodium 05/07/17 Lacosamide 05/07/17 Ondansetron 05/07/17 Medical Decision Making - Diagnostics Imaging: Discussed imaging studies w/ physically impaired teacher Radiologist Procedures: Procedure: Laceration repair. Verbal consent was obtained from the patient. The 1 cm laceration on the chin was anesthetized in the usual fashion. The wound was irrigated, draped and explored to its base with a gloved finger. There were no deep structures involved. No tendon injury was identified. The wound was repaired with 5 0 Prolene, 3 simple interrupted sutures. The wound repair was simple. The procedure was performed by myself. ED Course/Re-evaluation: Patient is discussed with my secondary supervising physician Dr. Nelly Botello. Patient is brought to the emergency department by EMS after sustaining a fall with facial injury. She does have a history of gait disturbances and falls. However this was not witnessed and it is not clear if this was a mechanical fall or syncopal episode. She does have a laceration noted on physical exam without evidence of further trauma. Laceration is repaired. She undergoes scanning of the face and head with CT without further injury noted. Blood studies and EKG obtained to ensure no other underlying pathology that could result in a syncopal episode. These are within normal limits. Patient will be discharged back to her assisted care facility. Differential Diagnosis: Included but not limited to mechanical fall with different types of traumatic injury, syncopal episodes multiple etiologies including anemia, electrolyte disturbances, cardiac disturbances - Data Points Laboratory Results: Laboratory Results 06/29/17 16:37 06/29/17 16:37 Departure - Departure Disposition: Home, Routine, Self-Care Clinical Impression: Chin laceration Qualifiers: Encounter type: initial encounter Qualified Code(s): S01.81XA - Laceration without foreign body of other part of head, initial encounter Condition: Good Instructions: Care For Your Stitches (ED), Laceration (ED), Acute Wounds (ED) Additional Instructions: Follow-up with your primary care doctor for recheck Have your primary care doctor check your medical records to ensure your tetanus is up-to-date Stitches to be removed in 7 days If symptoms worsen or new symptoms develop return to the emergency room for recheck Referrals: NONE *PRIMARY CARE P,. [Primary Care Provider] - As per Instructions [facility],. [Clinic] - As per Instructions
[2017-06-29 19:34] VITALS: BP 107/66; PULSE 66; TEMP 97.7; O2SAT 92
== END 2017-06-29 19:31 | disposition home or self-care (01) ==
LOC: EDUNIT#
PROC: 0HQ1XZZ Repair Face Skin, External Approach (ICD-10-PCS; principal; 2017-06-29)
DX: S01.81XA Laceration without foreign body of other part of head, initial encounter (principal); Z87.891 Personal history of nicotine dependence; W01.198A Fall on same level from slipping, tripping and stumbling with subsequent striking against other object, initial encounter; Y92.009 Unspecified place in unspecified non-institutional (private) residence as the place of occurrence of the external cause; Y99.8 Other external cause status; Y93.89 Activity, other specified

== ENCOUNTER 2017-08-20 20:18 | Emergency (ER) | payer MEDICAID ==
[2017-08-20 20:23] VITALS: PULSE 70; O2SAT 95
[2017-08-20] MEDS ORDERED: TDAP ADULT 0.5 ML INJ (BOOSTRIX) IM ONE (20:24)
--- NOTE | 2017-08-20 20:26 | EDPHY ---
H & P Time Seen by Provider: 08/20/17 20:25 HPI/ROS: CHIEF COMPLAINT: Fall with scalp laceration HISTORY OF PRESENT ILLNESS: Patient fell mechanically and hit the back of her head against a table about half an hour before arrival. She presents by EMS with a bleeding scalp laceration. No headache or neck pain and no syncope. REVIEW OF SYSTEMS: Eye: no change in vision ENT: no sore throat Cardiac: no chest pain or syncope Pulmonary: no cough or SOB Abdomen: no vomiting, diarrhea, abdominal pain Musculoskeletal: no back pain or neck pain Skin: Scalp laceration Neuro: no headache Constitutional: no fever : no urinary symptoms A comprehensive 10 point review of systems is otherwise negative aside from elements mentioned in the history of present illness. PAST MEDICAL HISTORY: Seizure disorder, frequent falls, anorexia, osteoporosis. Social history: [facility] resident General Appearance: Alert and conversant, cooperative. Eyes: No scleral icterus. ENT, Mouth: Normal mucous membranes. Normal tympanic membranes, no hemotympanum. No bruising around the mastoid. Respiratory: Normal respiratory effort, breath sounds equal, lungs are clear to auscultation. Cardiovascular: Regular rate and rhythm. Gastrointestinal: Abdomen is soft and non tender. Neurological: Alert, answers questions appropriately, moves all 4 extremities. Skin: 2.5 cm scalp laceration on the vertex Musculoskeletal: No midline spinal tenderness. No extremity tenderness. Psychiatric: Not agitated. Emergency Department course/MDM: Tetanus updated. Cervical spine cleared clinically. Patient does not have severe headache or loss of consciousness or neurologic changes to suggest she is at high risk for intracranial bleed or skull fracture. Procedure: Laceration repair. Verbal consent was obtained from the patient. The 2.5 cm laceration on the scalp was anesthetized using 0.5% bupivacaine with epinephrine. The wound was irrigated with standard emergency department protocol, draped and explored. There were no deep structures involved. No foreign body found. The wound was repaired with lisbet. The wound repair was simple. Excellent hemostasis was obtained. Wound care instructions were discussed and the patient was warned regarding scarring. The procedure was performed by myself. Smoking Status: Former smoker Constitutional: Initial Vital Signs Temperature (C) 36.7 C 08/20/17 20:21 Heart Rate 70 08/20/17 20:21 Respiratory Rate 18 08/20/17 20:21 Blood Pressure 110/76 08/20/17 20:21 O2 Sat (%) 95 08/20/17 20:21 O2 Delivery Mode Room Air Allergies/Adverse Reactions: codeine [Codeine] Allergy (Intermediate, Verified 08/20/17 20:20) BREAK OUT LIKE A LOBSTER,RASH,PUFFY Home Medications: Medication Instructions Recorded ALENDRONATE SODIUM 06/09/09 Levothyroxine 06/09/09 ZONISAMIDE 06/09/09 Divalproex Sodium 05/07/17 Lacosamide 05/07/17 Ondansetron 05/07/17 Medical Decision Making Differential Diagnosis: Differential diagnosis considered for head injury including but not limited to concussion, skull fracture, intraparenchymal contusion, subarachnoid, subdural and epidural hematoma. - Data Points Medications Given: Discontinued Medications Diphtheria/Tetanus/Acell Pertussis (Boostrix) 0.5 ml IM .ONCE ONE Stop: 08/20/17 20:25 Last Admin: 08/20/17 20:28 Dose: 0.5 ml Departure - Departure Disposition: Home, Routine, Self-Care Clinical Impression: Scalp laceration Qualifiers: Encounter type: initial encounter Qualified Code(s): S01.01XA - Laceration without foreign body of scalp, initial encounter Condition: Good Instructions: Laceration (ED), Head Injury (ED) Additional Instructions: Wound Care Follow-Up: Removal of sutures in 10 days. Suture removal is complimentary in uncomplicated cases. Infection or abnormal findings would require reevaluation by the MD. In that case, you may be billed. Referrals: Patient,NotPresent [Unknown] - As per Instructions (Dr. Burgos your PCP)
[2017-08-20 21:50] VITALS: BP 104/60; RESP 16; TEMP 97.7
== END 2017-08-20 22:22 | disposition home or self-care (01) ==
LOC: EDUNIT#
PROC: 0HQ0XZZ Repair Scalp Skin, External Approach (ICD-10-PCS; principal; 2017-08-20)
DX: S01.01XA Laceration without foreign body of scalp, initial encounter (principal); Z23 Encounter for immunization; Z87.891 Personal history of nicotine dependence; W18.09XA Striking against other object with subsequent fall, initial encounter

== ENCOUNTER → 2018-05-16 | Outpatient (CLI) | payer MEDICAID | LOC: FIMAGING 13:39 | PROVIDERS: ATTEND Internal Medicine Geriatric Medicine | DX: G40.901 Epilepsy, unspecified, not intractable, with status epilepticus (principal); F07.9 Unspecified personality and behavioral disorder due to known physiological condition; R11.0 Nausea; G93.89 Other specified disorders of brain; G31.9 Degenerative disease of nervous system, unspecified; Z91.81 History of falling; Z98.890 Other specified postprocedural states ==

== ENCOUNTER 2019-01-20 17:12 | Emergency (ER) | payer MEDICAID | END 2019-01-20 23:03 | disposition short-term general hospital (02) ==